=== PATIENT | male | born 1960 | race Asian ===

== ENCOUNTER 2020-04-13 10:15 | Emergency (ER) | payer OTHER ==
[~2020-04-13] VITALS: Ht 172.7 cm; Wt 74.8 kg
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
[2020-04-13] MEDS ORDERED: HYDROcodone/Acetamin 5/325 tab ORAL ONE (10:30)
--- NOTE | 2020-04-13 11:15 | NUR ---
ED Nurse Note: Patient taken to xray.
--- NOTE | 2020-04-13 12:00 | NUR ---
ED Nurse Note: Patient came back from xray.
[2020-04-13] MEDS ORDERED: NORCO 5-325 TA1 EAC1 ORAL (12:30)
[2020-04-13] MEDS ORDERED: IBUPROFEN600 M1 ORAL (12:30)
[2020-04-13 13:06] VITALS: BP 133/70
--- NOTE | 2020-04-13 13:06 | NUR ---
ER DISCHARGE NOTE: Patient is cleared to be discharged per ERMD, pt is aox4, on room air, with stable vital signs. pt was given dc and prescription instructions, pt was also instructed on how to use his crutches. pt was able to verbalize understanding, pt id band removed. pt is able to ambulate with crutches and pt took all belongings.
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
== END 2020-04-13 13:06 | disposition home or self-care (01) ==
LOC: EDBD 10:15 → EMR 10:43
DX: S70.12XA Contusion of left thigh, initial encounter (principal); S89.92XA Unspecified injury of left lower leg, initial encounter; V13.4XXA Pedal cycle driver injured in collision with car, pick-up truck or van in traffic accident, initial encounter; Y92.410 Unspecified street and highway as the place of occurrence of the external cause; M25.512 Pain in left shoulder; M25.562 Pain in left knee; M25.552 Pain in left hip; M25.572 Pain in left ankle and joints of left foot
CPT/HCPCS: 73030; 73502; 73552; 73562; 73610; Z7502; 99284